=== PATIENT | male | born 1985 | race Caucasian/White ===

== ENCOUNTER 2022-02-27 07:29 | Inpatient (IN) | payer MEDICAID ==
[~2022-02-27] VITALS: Ht 177.8 cm; Wt 100.0 kg
[2022-02-27] MEDS ORDERED: normal saline 1000ML IV soln IV ONE (08:40)
[2022-02-27] MEDS ORDERED: TETanus/Pertussis (Acell)/Diphther VAC/PF (Tdap-Adult) 0.5ml syringe IMVAC ONE (09:55)
[2022-02-27] MEDS ORDERED: LIDOcaine 1% W/epiNEPHrine 1:100,000 20ml vial SQ ONE (09:55)
[2022-02-27 10:14] LABS: BASOPHILS % (AUTO) 0.1 % (0-1); EOSINOPHILS % (AUTO) 0.1 % (0-6); HEMATOCRIT 46.7 % (42.0-52.0); HEMOGLOBIN 15.8 g/dl (14.0-17.9); LYMPHOCYTES # (AUTO) 1.8 X10'3 (1.1-4.8); LYMPHOCYTES % (AUTO) 6.7 % (21-51); MEAN CORPUSCULAR HEMOGLOBIN 28.1 PG (27.0-31.0); MEAN CORPUSCULAR HGB CONC 33.8 g/dL (33.0-36.5); MEAN CORPUSCULAR VOLUME 83.2 FL (78-98); MEAN PLATELET VOLUME 7.5 FL (7.4-10.4); MONOCYTES # (AUTO) 2.3 X10'3 (0-0.9); MONOCYTES % (AUTO) 8.5 % (2-12); NEUTROPHILS # (AUTO) 23.2 X10'3 (1.8-7.7); NEUTROPHILS % (AUTO) 84.6 % (42-75); PLATELET COUNT 374 X10'3 (140-440); RED BLOOD COUNT 5.62 X10'6 (4.70-6.10); RED CELL DISTRIBUTION WIDTH 14.2 % (11.5-14.5)
[2022-02-27 10:21] LABS: WHITE BLOOD COUNT 27.4 X10'3 (4.5-11.0)
[2022-02-27 10:33] LABS: ALANINE AMINOTRANSFERASE 109 U/L (12-78); ALBUMIN 4.6 G/DL (3.4-5.0); ALBUMIN/GLOBULIN RATIO 1.1 (1.1-1.5); ALKALINE PHOSPHATASE 86 IU/L (46-116); ANION GAP 16 (8-16); ASPARTATE AMINO TRANSFERASE 71 U/L (10-37); BILIRUBIN,TOTAL 0.3 MG/DL (0.1-1.0); BLOOD UREA NITROGEN 19 MG/DL (7-18); BUN/CREATININE RATIO 11.9 (5.4-32.0); CALCIUM 9.3 MG/DL (8.5-10.1); CHLORIDE 106 MMOL/L (99-107); CREATININE 1.59 MG/DL (0.60-1.10); GLUCOSE 134 MG/DL (70-104); POTASSIUM 4.3 MMOL/L (3.5-5.1); SODIUM 144 MMOL/L (135-145); TOTAL CARBON DIOXIDE 22.2 MMOL/L (24-32); TOTAL PROTEIN 8.8 G/DL (6.4-8.2); eGFR 50 ML/MIN
[2022-02-27] MEDS ORDERED: normal saline 1000ml 1,000 ML IV ONE (10:50)
[2022-02-27 11:08] LABS: PLATELET ESTIMATE NORMAL; TOTAL CELLS COUNTED 100
[2022-02-27] MEDS ORDERED: piperacillin/tazo 3.375gm/50ml 50 ML IV ONE (11:10)
[2022-02-27 11:43] LABS: CLARITY,URINE CLEAR (Clear); COLOR,URINE YELLOW (Yellow); GLUCOSE, URINE NEGATIVE (Neg); KETONES,URINE TRACE mg/dl (Neg); LEUKOCYTE ESTERASE ,URINE NEGATIVE (Neg); NITRITES, URINE NEGATIVE (Neg); OCCULT BLOOD,URINE LARGE (Neg); PH,URINE 5.5 (4.8-8.0); PROTEIN,URINE 30 mg/dl (Neg); UROBILINOGEN,URINE 0.2 E.U/dL (0.2-1.0)
[2022-02-27 11:50] LABS: UA COLLECTION TYPE STRAIGHT CATH; URINE AMPHETAMINE SCREEN POSITIVE (Neg); URINE BARBITUATE SCREEN NEGATIVE (Neg); URINE BENZODIAZEPINES SCREEN POSITIVE (Neg); URINE CANNABINOID SCREEN NEGATIVE (Neg); URINE COCAINE SCREEN NEGATIVE (Neg); URINE METHADONE SCREEN NEGATIVE (Neg); URINE OPIATE SCREEN NEGATIVE (Neg); URINE PHENCYCLIDINE SCREEN NEGATIVE (Neg)
[2022-02-27 11:58] LABS: SQUAMOUS EPITHELIAL CELL,UR FEW /LPF (FEW)
[2022-02-27 11:59] LABS: BACTERIA,URINE 1+ /HPF (Neg); RBC,URINE 0-2 /HPF (0-2); SPERM MANY /HPF (NEGATIVE); WBC,URINE 0-4 /HPF (0-4)
[2022-02-27] MEDS ORDERED: HYDROmorphone/PF 0.2 MG/ML SYRINGE IV PRN (14:05)
[2022-02-27] MEDS ORDERED: magnesium hydroxide 30ml (MOM) UD suspension PO PRN (14:05)
[2022-02-27] MEDS ORDERED: acetaminophen 325mg tablet PO PRN ×2 (14:05)
[2022-02-27] MEDS ORDERED: ondansetron 4mg rapidly disintigrating tab PO PRN (14:05)
[2022-02-27] MEDS ORDERED: POTASSIUM BICARB 20meq eff tab 20 MEQ TABLET.EFF PO PRN ×2 (14:05)
[2022-02-27] MEDS ORDERED: metoclopramide 5 mg/ml inj IV PRN (14:05)
[2022-02-27] MEDS ORDERED: magnesium Cl slow-release 64mg tablet PO PRN (14:05)
[2022-02-27] MEDS ORDERED: HYDROcodone/acetaminophen 5mg/325mg tablet PO PRN (14:05)
[2022-02-27] MEDS ORDERED: magnesium 2GM in 50ml NS 50 ML IV PRN (14:05)
[2022-02-27] MEDS ORDERED: potassium CL 10mEq/100ml bag 100 ML IV PRN (14:05)
[2022-02-27] MEDS ORDERED: bisacodyl 10mg suppository rectal RC PRN (14:05)
[2022-02-27] MEDS ORDERED: magnesium 4gm in 100ml NS 100 ML IV PRN (14:05)
[2022-02-27] MEDS ORDERED: ondansetron/PF 4mg/2ml inj IV PRN (14:05)
[2022-02-27] MEDS ORDERED: LORazepam 2 mg/ml vial IV PRN (14:05)
[2022-02-27] MEDS ORDERED: HYDROcodone/acetaminophen 10/325mg tab PO PRN (14:05)
[2022-02-27] MEDS ORDERED: mag hydrox/Alum hydrox/simeth 30ml oral suspension PO PRN (14:05)
[2022-02-27] MEDS ORDERED: acetaminophen 650mg rectal suppository RC PRN (14:05)
[2022-02-27] MEDS ORDERED: LUMA42CA PO (15:05)
[2022-02-27] MEDS ORDERED: ALPR0.5T9 PO (15:05)
[2022-02-27] MEDS ORDERED: ESZO3TAB44 PO (15:05)
[2022-02-27] MEDS ORDERED: OLAN5TAB75 PO (15:05)
[2022-02-27] MEDS ORDERED: BUPR1FIL20 SL (15:05)
[2022-02-27 15:16] LABS: MAGNESIUM 2.4 MG/DL (1.5-2.4); POTASSIUM 3.4 MMOL/L (3.5-5.1)
[2022-02-27] MEDS: normal saline 1000ml 1,000 ML IV SCH ×2 (16:11→22:36)
[2022-02-27] MEDS: piperacillin/tazo 3.375gm/50ml 50 ML IV SCH (16:11)
[2022-02-27] MEDS ORDERED: buprenorphine/naloxone 8MG-2MG SUBlingual film SL ONE (16:20)
[2022-02-27] MEDS: buprenorphine/naloxone 8MG-2MG SUBlingual film SL SCH (19:48)
[2022-02-27] MEDS: docusate sod 100mg capsule PO SCH (19:49)
[2022-02-27] MEDS ORDERED: OLANZapine **IM** 10 mg inj. IM ONE (19:50)
[2022-02-27] MEDS: heparin, porcine 5000 units/ml vial SQ SCH (20:00)
[2022-02-27] MEDS: OLANZAPINE 5 MG TABLET PO SCH (20:00)
[2022-02-27] MEDS: K and/or MAG REPLACEMENT MC SCH (20:00)
[2022-02-27] MEDS ORDERED: non-formulary drug (Eszopiclone 1 TAB) PO SCH (21:00)
[2022-02-27] MEDS ORDERED: temazepam 15mg capsule PO PRN (21:00)
--- NOTE | 2022-02-27 21:02 | NUR ---
Pt refused oral medications IV ativan and IM Zyprexa administered. Pt thrashing and fighting injections. Unsafe to give heparin.
--- NOTE | 2022-02-28 01:16 | NUR ---
skin condition checked under wrist and ankle cuffs placed by [place] Jeremie Bush. Skin is unbroken but shows compression kowalski. Officer loosened cuffs and cuffs moved off of compressed area. CSM X 4 intact.
[2022-02-28] MEDS: normal saline 1000ml 1,000 ML IV SCH ×3 (06:03→22:03)
[2022-02-28 07:32] LABS: BASOPHILS % (AUTO) 0.3 % (0-1); EOSINOPHILS # (AUTO) 0.1 X10'3 (0-0.9); EOSINOPHILS % (AUTO) 1.1 % (0-6); HEMATOCRIT 42.2 % (42.0-52.0); HEMOGLOBIN 14.2 g/dl (14.0-17.9); LYMPHOCYTES # (AUTO) 2.5 X10'3 (1.1-4.8); LYMPHOCYTES % (AUTO) 18.3 % (21-51); MEAN CORPUSCULAR HEMOGLOBIN 27.8 PG (27.0-31.0); MEAN CORPUSCULAR HGB CONC 33.7 g/dL (33.0-36.5); MEAN CORPUSCULAR VOLUME 82.5 FL (78-98); MEAN PLATELET VOLUME 7.9 FL (7.4-10.4); MONOCYTES % (AUTO) 7.1 % (2-12); NEUTROPHILS # (AUTO) 10.2 X10'3 (1.8-7.7); NEUTROPHILS % (AUTO) 73.2 % (42-75); PLATELET COUNT 255 X10'3 (140-440); RED BLOOD COUNT 5.11 X10'6 (4.70-6.10); RED CELL DISTRIBUTION WIDTH 14.1 % (11.5-14.5); WHITE BLOOD COUNT 13.9 X10'3 (4.5-11.0)
[2022-02-28 07:51] LABS: ALANINE AMINOTRANSFERASE 206 U/L (12-78); ALBUMIN 3.5 G/DL (3.4-5.0); ALKALINE PHOSPHATASE 61 IU/L (46-116); ANION GAP 12 (8-16); ASPARTATE AMINO TRANSFERASE 418 U/L (10-37); BILIRUBIN,TOTAL 0.6 MG/DL (0.1-1.0); BLOOD UREA NITROGEN 10 MG/DL (7-18); CALCIUM 8.7 MG/DL (8.5-10.1); CHLORIDE 108 MMOL/L (99-107); GLUCOSE 119 MG/DL (70-104); MAGNESIUM 2.5 MG/DL (1.5-2.4); POTASSIUM 3.6 MMOL/L (3.5-5.1); SODIUM 145 MMOL/L (135-145); TOTAL PROTEIN 7.1 G/DL (6.4-8.2); eGFR 85 ML/MIN
[2022-02-28] MEDS: K and/or MAG REPLACEMENT MC SCH ×2 (08:00→20:00)
[2022-02-28] MEDS: heparin, porcine 5000 units/ml vial SQ SCH ×2 (08:00→20:38)
[2022-02-28] MEDS: docusate sod 100mg capsule PO SCH ×2 (08:00→20:36)
[2022-02-28] MEDS: OLANZAPINE 5 MG TABLET PO SCH ×3 (08:00→20:36)
--- NOTE | 2022-02-28 08:30 | NUR ---
PT HAD REFUSED ZYPREXA COLACE AND HEPARIN. PT WILLING TO TAKE SUBOXONE AND NICOTINE PATCH AND DID NOT OBJECT TO ABX ADMINISTRATION.
[2022-02-28] MEDS: piperacillin/tazo 3.375gm/50ml 50 ML IV SCH ×4 (08:44→23:44)
[2022-02-28] MEDS: nicotine 21mg patch - 24 hr TD SCH (08:45)
[2022-02-28] MEDS: buprenorphine/naloxone 8MG-2MG SUBlingual film SL SCH ×2 (08:47→20:35)
[2022-02-28] MEDS: LORazepam 1 MG tablet PO PRN (12:23)
--- NOTE | 2022-02-28 18:47 | NUR ---
Report given to RN Omayra, pt going to bed [id number]
[2022-02-28 20:15] VITALS: BP 183/96
[2022-02-28] MEDS: HYDROmorphone inj. 0.5 MG/0.5 ML DISP.SYRIN IV PRN (22:16)
[2022-02-28 23:00] VITALS: BP 154/105
[2022-03-01] MEDS: LORazepam 1 MG tablet PO PRN (00:06)
--- NOTE | 2022-03-01 05:51 | NUR ---
pt unable to recall manufacture of covid vac Addendum: 03/01/22 at 0552 by Alize Fonseca RN Amended: Links added.
[2022-03-01] MEDS: normal saline 1000ml 1,000 ML IV SCH (06:15)
[2022-03-01] MEDS: HYDROmorphone inj. 0.5 MG/0.5 ML DISP.SYRIN IV PRN (06:20)
[2022-03-01 07:07] LABS: BASOPHILS % (AUTO) 0.5 % (0-1); EOSINOPHILS # (AUTO) 0.3 X10'3 (0-0.9); EOSINOPHILS % (AUTO) 3.3 % (0-6); HEMATOCRIT 41.1 % (42.0-52.0); HEMOGLOBIN 13.8 g/dl (14.0-17.9); LYMPHOCYTES # (AUTO) 2.2 X10'3 (1.1-4.8); LYMPHOCYTES % (AUTO) 24.1 % (21-51); MEAN CORPUSCULAR HGB CONC 33.6 g/dL (33.0-36.5); MEAN CORPUSCULAR VOLUME 83.2 FL (78-98); MEAN PLATELET VOLUME 8.2 FL (7.4-10.4); MONOCYTES # (AUTO) 0.6 X10'3 (0-0.9); NEUTROPHILS % (AUTO) 65.1 % (42-75); PLATELET COUNT 222 X10'3 (140-440); RED BLOOD COUNT 4.93 X10'6 (4.70-6.10); RED CELL DISTRIBUTION WIDTH 14.2 % (11.5-14.5); WHITE BLOOD COUNT 9.2 X10'3 (4.5-11.0)
[2022-03-01 07:48] LABS: ALANINE AMINOTRANSFERASE 187 U/L (12-78); ALBUMIN 3.2 G/DL (3.4-5.0); ALKALINE PHOSPHATASE 56 IU/L (46-116); ANION GAP 11 (8-16); ASPARTATE AMINO TRANSFERASE 263 U/L (10-37); BILIRUBIN,TOTAL 0.5 MG/DL (0.1-1.0); BLOOD UREA NITROGEN 9 MG/DL (7-18); BUN/CREATININE RATIO 10.8 (5.4-32.0); CALCIUM 8.6 MG/DL (8.5-10.1); CHLORIDE 108 MMOL/L (99-107); CREATININE 0.83 MG/DL (0.60-1.10); GLUCOSE 92 MG/DL (70-104); MAGNESIUM 2.1 MG/DL (1.5-2.4); POTASSIUM 3.8 MMOL/L (3.5-5.1); SODIUM 144 MMOL/L (135-145); TOTAL CARBON DIOXIDE 24.8 MMOL/L (24-32); TOTAL PROTEIN 6.5 G/DL (6.4-8.2); eGFR > 90 ML/MIN
[2022-03-01] MEDS: docusate sod 100mg capsule PO SCH (08:00)
[2022-03-01] MEDS: heparin, porcine 5000 units/ml vial SQ SCH (08:00)
[2022-03-01] MEDS: K and/or MAG REPLACEMENT MC SCH (08:00)
[2022-03-01] MEDS: nicotine 21mg patch - 24 hr TD SCH (08:44)
[2022-03-01] MEDS: OLANZAPINE 5 MG TABLET PO SCH (08:45)
[2022-03-01] MEDS: piperacillin/tazo 3.375gm/50ml 50 ML IV SCH (08:45)
[2022-03-01] MEDS: buprenorphine/naloxone 8MG-2MG SUBlingual film SL SCH (08:45)
[2022-03-01] MEDS ORDERED: NICO-687 TD (10:15)
[2022-03-01] MEDS ORDERED: AMOX-117 PO (10:15)
[2022-03-03 07:00] LABS: HBSAG SCREEN Negative (Negative); HEP A AB, IGM Negative (Negative)
== END 2022-03-01 12:45 | DRG 383 ==
LOC: ER 07:29 → EEVIPCON 07:29 → ED HOLD 14:11 → EDBEDREQ 02-28 18:14 → ORTHO 4S 02-28 20:01
PROVIDERS: ADMIT Family Medicine; ATTEND Family Medicine
PROC: 3E0234Z Introduction of Serum, Toxoid and Vaccine into Muscle, Percutaneous Approach (ICD-10-PCS; principal; 2022-02-27)
PROC: 0HQEXZZ Repair Left Lower Arm Skin, External Approach (ICD-10-PCS; 2022-02-27)
PROC: 0HQEXZZ Repair Left Lower Arm Skin, External Approach (ICD-10-PCS; 2022-02-27)
PROC: 0HQEXZZ Repair Left Lower Arm Skin, External Approach (ICD-10-PCS; 2022-02-27)
DX: L03.114 Cellulitis of left upper limb (principal); N17.0 Acute kidney failure with tubular necrosis; G93.41 Metabolic encephalopathy; S51.832A Puncture wound without foreign body of left forearm, initial encounter; E86.0 Dehydration; E87.2 Acidosis; S50.812A Abrasion of left forearm, initial encounter; F17.210 Nicotine dependence, cigarettes, uncomplicated; R74.01 Elevation of levels of liver transaminase levels; F15.10 Other stimulant abuse, uncomplicated; E87.6 Hypokalemia; R00.0 Tachycardia, unspecified; F20.9 Schizophrenia, unspecified; S41.112A Laceration without foreign body of left upper arm, initial encounter; W54.0XXA Bitten by dog, initial encounter; Y93.89 Activity, other specified; Y92.89 Other specified places as the place of occurrence of the external cause; Y99.8 Other external cause status; Z86.14 Personal history of Methicillin resistant Staphylococcus aureus infection; Z23 Encounter for immunization; Z71.6 Tobacco abuse counseling
CPT/HCPCS: 12001; 36415; 71045; 76700; 80053; 80074; 80305; 81001; 83605; 83735; 84132; 84145; 84443; 85007; 85025; 87040; 87081; 87502; 87503; 87635; 90471; 90715; 93005; 96361; 96365; 96366; 99291; A6258; A6449; C1758; C9803; G0378; J1170; J1644; J2060; J2543; J3490; J7030